=== PATIENT | male | born 1950 | race Caucasian/White ===

== ENCOUNTER 2017-09-27 18:55 | Emergency (ER) | payer MEDICARE ==
[~2017-09-27] VITALS: Ht 167.6 cm; Wt 106.8 kg
[~2017-09-27 18:55] MED LIST: ASPI-556 PO; ATEN50TA PO; GABA-531 PO; HYDR25TA PO; INSLAN SQ; LIRA0.6P SQ; METF500T4 PO; PRAZ1 PO; SIMV-260 PO; ZOLP10TA7 PO
[2017-09-27] MEDS ORDERED: ACETAMINOPHEN 500 MG TABLET PO ONE (19:15)
[2017-09-27] MEDS ORDERED: INSLAN SQ (19:16)
[2017-09-27] MEDS ORDERED: TRAZ-144 PO (19:39)
[2017-09-27] MEDS ORDERED: AMLO-511 PO (19:39)
[2017-09-27] MEDS ORDERED: ATOR40TA28 PO (19:39)
[2017-09-27] MEDS ORDERED: CARV12 PO (19:39)
[2017-09-27] MEDS ORDERED: VITAD1000 PO (19:39)
[2017-09-27] MEDS ORDERED: BUME1TAB17 PO (19:39)
[2017-09-27] MEDS ORDERED: VENL-67 PO (19:39)
[2017-09-27] MEDS ORDERED: HYDR-4061 PO (19:39)
[2017-09-27 19:47] LABS: BASOPHILS % (AUTO) 0.7 % (0.0-2.0); EOSINOPHILS % (AUTO) 5.3 % (1.0-6.0); HEMATOCRIT 32.2 % (41-53); LYMPHOCYTES # (AUTO) 1.2 K/uL (1.0-4.8); LYMPHOCYTES % (AUTO) 17.1 % (22.0-44.0); MEAN CORPUSCULAR HEMOGLOBIN 29.8 pg (26.0-34.0); MEAN CORPUSCULAR HGB CONC 34.1 G/dL (31.0-37.0); MEAN CORPUSCULAR VOLUME 87 fL (80-100); MONOCYTES # (AUTO) 0.5 K/uL (0.1-1.0); MONOCYTES % (AUTO) 7.4 % (2.0-9.0); NEUTROPHILS # (AUTO) 4.8 K/uL (1.8-7.7); NEUTROPHILS % (AUTO) 69.5 % (40.0-70.0); PLATELET COUNT (AUTO) 134 K/uL (150-450); RED BLOOD CELL COUNT(AUTO) 3.69 MIL/uL (4.50-5.90); RED CELL DISTRIBUTION WIDTH 15.3 % (11.5-14.5)
[2017-09-27 19:58] LABS: CALCIUM, TOTAL 8.2 mg/dL (8.8-10.5); CREATININE 3.1 mg/dL (0.60-1.30); POTASSIUM 4.2 mmol/L (3.5-5.1)
[2017-09-27 19:59] VITALS: BP 145/80
[2017-09-27 20:04] LABS: ALBUMIN 2.7 g/dL (3.4-5.0); BILIRUBIN,TOTAL 0.4 mg/dL (0.1-1.0)
[2017-09-27] MEDS ORDERED: ASPIRIN 81 MG CHEWABLE TABLET PO ONE (20:15)
[2017-09-27] MEDS ORDERED: ACETAMINOPHEN 325 MG TABLET PO PRN (20:30)
[2017-09-27] MEDS ORDERED: ONDANSETRON HCL 4 MG/2 ML VIAL IVP PRN (20:30)
== END 2017-09-27 21:05 | disposition left against medical advice (07) ==
LOC: EMS 18:56 → UNDOADMIN 20:20 → 5S 20:20
DX: I12.9 Hypertensive chronic kidney disease with stage 1 through stage 4 chronic kidney disease, or unspecified chronic kidney disease (principal); E11.22 Type 2 diabetes mellitus with diabetic chronic kidney disease; N18.9 Chronic kidney disease, unspecified; E11.65 Type 2 diabetes mellitus with hyperglycemia; M54.5 Low back pain; I25.10 Atherosclerotic heart disease of native coronary artery without angina pectoris; E78.00 Pure hypercholesterolemia, unspecified; G89.29 Other chronic pain; Z02.89 Encounter for other administrative examinations; Z79.4 Long term (current) use of insulin; Z79.82 Long term (current) use of aspirin
CPT/HCPCS: 82962; 93005; 99285